=== PATIENT | male | born 1935 | race Caucasian/White ===

== ENCOUNTER 2018-01-05 16:02 | Emergency (ER) | payer MEDICARE, OTHER ==
[~2018-01-05] VITALS: Ht 177.8 cm; Wt 85.3 kg
[~2018-01-05 16:02] MED LIST: FOLI1TAB16 PO; PANT-47 PO; PRAV40TA3 PO; ROPI4TAB3 PO; TERA10CA4 PO
[2018-01-05 16:08] VITALS: BP 156/103
[2018-01-05] MEDS ORDERED: normal saline 1000ML IV soln IV ONE (16:20)
[2018-01-05] MEDS ORDERED: pantoprazole IV 80 MG in normal saline 100ml IV soln 100 ML IV ONE (16:20)
[2018-01-05 16:38] LABS: CLARITY,URINE CLEAR (Clear); COLOR,URINE YELLOW (Yellow); GLUCOSE, URINE NEGATIVE (Neg); KETONES,URINE NEGATIVE (Neg); LEUKOCYTE ESTERASE ,URINE NEGATIVE (Neg); NITRITES, URINE NEGATIVE (Neg); OCCULT BLOOD,URINE NEGATIVE (Neg); PROTEIN,URINE NEGATIVE (Neg); UROBILINOGEN,URINE 0.2 E.U/dL (0.2-1.0)
[2018-01-05 16:39] LABS: UA COLLECTION TYPE CLN CATCH MIDSTREAM
[2018-01-05 16:53] LABS: BASOPHILS % (AUTO) 0.4 % (0-1); EOSINOPHILS # (AUTO) 0.2 X10'3 (0-0.9); HEMATOCRIT 29.3 % (42.0-52.0); HEMOGLOBIN 9.6 g/dl (14.0-17.9); LYMPHOCYTES # (AUTO) 0.9 X10'3 (1.1-4.8); LYMPHOCYTES % (AUTO) 11.9 % (21-51); MEAN CORPUSCULAR HEMOGLOBIN 23.4 PG (27.0-31.0); MEAN CORPUSCULAR HGB CONC 32.8 % (33.0-36.5); MEAN CORPUSCULAR VOLUME 71.3 FL (78-98); MEAN PLATELET VOLUME 7.4 FL (7.4-10.4); MONOCYTES # (AUTO) 0.6 X10'3 (0-0.9); MONOCYTES % (AUTO) 8.5 % (2-12); NEUTROPHILS # (AUTO) 5.9 X10'3 (1.8-7.7); NEUTROPHILS % (AUTO) 77.2 % (42-75); PLATELET COUNT 290 X10'3 (140-440); RED BLOOD COUNT 4.12 X10'6 (4.70-6.10); RED CELL DISTRIBUTION WIDTH 19.8 % (11.5-14.5); WHITE BLOOD COUNT 7.6 X10'3 (4.5-11.0)
[2018-01-05 17:03] LABS: PARTIAL THROMBOPLASTIN TIME 28 SECONDS (22-32); PROTHROMBIN TIME 10.5 SECONDS (9.0-12.0)
[2018-01-05 17:09] LABS: ALANINE AMINOTRANSFERASE 26 U/L (12-78); ALBUMIN 3.6 G/DL (3.4-5.0); ALBUMIN/GLOBULIN RATIO 0.9 (1.1-1.5); ALKALINE PHOSPHATASE 77 IU/L (46-116); ANION GAP 10 (8-16); ASPARTATE AMINO TRANSFERASE 18 U/L (10-37); BILIRUBIN,TOTAL 0.6 MG/DL (0.1-1.0); BLOOD UREA NITROGEN 35 MG/DL (7-18); BUN/CREATININE RATIO 25.9 (5.4-32.0); CHLORIDE 97 MMOL/L (99-107); CREATININE 1.35 MG/DL (0.60-1.10); GLUCOSE 102 MG/DL (70-104); POTASSIUM 3.9 MMOL/L (3.5-5.1); SODIUM 134 MMOL/L (135-145); TOTAL CARBON DIOXIDE 27.4 MMOL/L (24-32); TOTAL PROTEIN 7.4 G/DL (6.4-8.2); eGFR 51 ML/MIN
[2018-01-05] MEDS ORDERED: POLY119P2 PO (17:39)
[2018-01-07 10:45] LABS: OCCULT BLOOD STOOL POSITIVE (Neg)
== END 2018-01-05 18:02 | disposition home or self-care (01) ==
LOC: ER 16:03
DX: K62.5 Hemorrhage of anus and rectum (principal); K59.00 Constipation, unspecified; K80.20 Calculus of gallbladder without cholecystitis without obstruction; K57.30 Diverticulosis of large intestine without perforation or abscess without bleeding; I10 Essential (primary) hypertension; G89.29 Other chronic pain; Z79.899 Other long term (current) drug therapy
CPT/HCPCS: 36415; 74176; 80053; 81003; 82272; 85025; 85610; 85730; 86885; 86900; 86901; 93005; 96374; 99285; C9113; J7030

== ENCOUNTER 2018-02-09 10:46 | Inpatient (IN) | payer MEDICARE, OTHER ==
[2018-02-09] VITALS (21 sets, daily range): BP systolic 142–184; BP diastolic 65–103
[~2018-02-09] VITALS: Ht 177.8 cm; Wt 97.5 kg
[~2018-02-09 10:46] MED LIST changes: +POLY119P2 PO
[2018-02-09 11:25] LABS: BASOPHILS % (AUTO) 0.2 % (0-1); EOSINOPHILS # (AUTO) 0.3 X10'3 (0-0.9); EOSINOPHILS % (AUTO) 2.3 % (0-6); LYMPHOCYTES # (AUTO) 0.6 X10'3 (1.1-4.8); MEAN CORPUSCULAR HEMOGLOBIN 22.3 PG (27.0-31.0); MEAN CORPUSCULAR HGB CONC 31.9 % (33.0-36.5); MEAN CORPUSCULAR VOLUME 69.8 FL (78-98); MEAN PLATELET VOLUME 6.1 FL (7.4-10.4); MONOCYTES # (AUTO) 0.5 X10'3 (0-0.9); MONOCYTES % (AUTO) 4.3 % (2-12); NEUTROPHILS # (AUTO) 9.7 X10'3 (1.8-7.7); NEUTROPHILS % (AUTO) 88.2 % (42-75); PLATELET COUNT 540 X10'3 (140-440); RED BLOOD COUNT 2.74 X10'6 (4.70-6.10); RED CELL DISTRIBUTION WIDTH 19.3 % (11.5-14.5)
[2018-02-09 11:32] LABS: HEMATOCRIT 19.1 % (42.0-52.0); HEMOGLOBIN 6.1 g/dl (14.0-17.9)
[2018-02-09 11:38] LABS: ANISOCYTOSIS 2+; INR 1.1 INR; LARGE PLATELETS FEW; MICROCYTOSIS 2+; PARTIAL THROMBOPLASTIN TIME 29 SECONDS (22-32); PLATELET ESTIMATE INCREASED; POIKILOCYTOSIS FEW; POLYCHROMASIA 1+
[2018-02-09 11:39] LABS: TARGET CELLS FEW
[2018-02-09 11:58] LABS: ALANINE AMINOTRANSFERASE 26 U/L (12-78); ALBUMIN/GLOBULIN RATIO 0.8 (1.1-1.5); ALKALINE PHOSPHATASE 79 IU/L (46-116); ANION GAP 11 (8-16); ASPARTATE AMINO TRANSFERASE 32 U/L (10-37); BILIRUBIN,TOTAL 0.8 MG/DL (0.1-1.0); BLOOD UREA NITROGEN 15 MG/DL (7-18); BUN/CREATININE RATIO 13.3 (5.4-32.0); CALCIUM 8.5 MG/DL (8.5-10.1); CHLORIDE 88 MMOL/L (99-107); CREATININE 1.13 MG/DL (0.60-1.10); GLUCOSE 106 MG/DL (70-104); LIPASE 129 U/L (73-393); POTASSIUM 4.1 MMOL/L (3.5-5.1); SODIUM 122 MMOL/L (135-145); TOTAL CARBON DIOXIDE 23.4 MMOL/L (24-32); TOTAL PROTEIN 6.7 G/DL (6.4-8.2); eGFR 62 ML/MIN
[2018-02-09 12:17] LABS: OCCULT BLOOD STOOL NEGATIVE (Neg)
[2018-02-09] MEDS ORDERED: furosemide 10 MG/1 ML 10ml inj IV STA (12:28)
[2018-02-09 12:43] LABS: % IRON SATURATION 5 % (11-46); IRON 16 UG/DL (53-167); TOTAL IRON BINDING CAPACITY 343 UG/DL (259-388)
[2018-02-09] MEDS ORDERED: mag hydrox/Alum hydrox/simeth 30ml oral suspension PO PRN (12:45)
[2018-02-09] MEDS ORDERED: acetaminophen 325mg tablet PO PRN (12:45)
[2018-02-09] MEDS ORDERED: bisacodyl 10mg suppository rectal RC PRN (12:45)
[2018-02-09] MEDS ORDERED: ondansetron/PF 4mg/2ml inj IV PRN (12:45)
[2018-02-09] MEDS ORDERED: magnesium 4gm in 100ml NS 100 ML IV PRN (12:45)
[2018-02-09] MEDS ORDERED: HYDROcodone/acetaminophen 5mg/325mg tablet PO PRN (12:45)
[2018-02-09] MEDS ORDERED: magnesium 2GM in 50ml NS 50 ML IV PRN (12:45)
[2018-02-09] MEDS ORDERED: metoclopramide 5 mg/ml inj IV PRN (12:45)
[2018-02-09] MEDS ORDERED: magnesium hydroxide 30ml (MOM) UD suspension PO PRN (12:45)
[2018-02-09] MEDS ORDERED: potassium Cl 20 mEq SR tablet PO PRN ×2 (12:45)
[2018-02-09] MEDS ORDERED: potassium Cl 40MEQ/NS 500ml 500 ML IV PRN ×2 (12:45)
[2018-02-09] MEDS ORDERED: magnesium Cl slow-release 64mg tablet PO PRN (12:45)
[2018-02-09 12:48] LABS: RED BLOOD COUNT 2.73 X10'6 (4.70-6.10); RETICULOCYTE % (AUTO) 3.3 % (0.5-1.5)
[2018-02-09 12:49] LABS: CLARITY,URINE CLEAR (Clear); COLOR,URINE YELLOW (Yellow); GLUCOSE, URINE NEGATIVE (Neg); KETONES,URINE 15 mg/dl (Neg); LEUKOCYTE ESTERASE ,URINE NEGATIVE (Neg); NITRITES, URINE NEGATIVE (Neg); OCCULT BLOOD,URINE TRACE-INTACT (Neg); PROTEIN,URINE TRACE mg/dl (Neg)
[2018-02-09 12:52] LABS: UA COLLECTION TYPE CLN CATCH MIDSTREAM
[2018-02-09 12:54] LABS: BACTERIA,URINE NONE SEEN /HPF (Neg); MUCUS STRANDS NONE SEEN /LPF (Neg); RENAL CELLS, URINE FEW /HPF; SQUAMOUS EPITHELIAL CELL,UR FEW /LPF (FEW)
[2018-02-09 13:00] LABS: FERRITIN 61 NG/ML (26-388); MAGNESIUM 1.7 MG/DL (1.5-2.4)
[2018-02-09] MEDS ORDERED: ipratropium/albuterol 3ml nebule NEB PRN (13:05)
[2018-02-09] MEDS: iron sucrose complex injection 300 MG in normal saline 250ml IV soln 235 ML IV SCH (15:46)
[2018-02-09] MEDS: HYDROcodone/acetaminophen 10/325mg tab PO PRN (16:51)
[2018-02-09 17:24] LABS: HEMOGLOBIN 7.2 g/dl (14.0-17.9); MEAN CORPUSCULAR HGB CONC 32.6 % (33.0-36.5); MEAN CORPUSCULAR VOLUME 70.4 FL (78-98); MEAN PLATELET VOLUME 6.7 FL (7.4-10.4); PLATELET COUNT 559 X10'3 (140-440); RED BLOOD COUNT 3.13 X10'6 (4.70-6.10)
[2018-02-09] MEDS ORDERED: magnesium 1 gm/2ml inj. 1 GM in normal saline 50ml IV soln 48 ML IV ONE (17:35)
[2018-02-09] MEDS ORDERED: ROPINIROLE HCL 4 MG PO SCH (20:00)
[2018-02-09] MEDS: potassium Cl 20 mEq SR tablet PO SCH (22:18)
[2018-02-09] MEDS: terazosin 5mg capsule PO SCH (22:19)
[2018-02-09] MEDS: pravastatin 40mg tablet PO SCH (22:19)
[2018-02-09] MEDS: ROPINIRole 1mg tablet PO SCH (22:19)
[2018-02-09] MEDS: pantoprazole 40 MG vial IV SCH (23:06)
[2018-02-09] MEDS: furosemide 40mg/4ml inj IV SCH (23:06)
[2018-02-10 00:35] LABS: HEMATOCRIT 22.8 % (42.0-52.0); HEMOGLOBIN 7.4 g/dl (14.0-17.9); MEAN CORPUSCULAR HEMOGLOBIN 23.5 PG (27.0-31.0); MEAN CORPUSCULAR HGB CONC 32.5 % (33.0-36.5); MEAN CORPUSCULAR VOLUME 72.4 FL (78-98); MEAN PLATELET VOLUME 6.6 FL (7.4-10.4); PLATELET COUNT 529 X10'3 (140-440); RED BLOOD COUNT 3.15 X10'6 (4.70-6.10); RED CELL DISTRIBUTION WIDTH 19.9 % (11.5-14.5); WHITE BLOOD COUNT 12.4 X10'3 (4.5-11.0)
[2018-02-10 02:00] VITALS: BP 152/76
[2018-02-10 06:00] VITALS: BP 152/87
[2018-02-10 06:06] LABS: HEMATOCRIT 23.6 % (42.0-52.0); HEMOGLOBIN 7.7 g/dl (14.0-17.9); MEAN CORPUSCULAR HEMOGLOBIN 23.4 PG (27.0-31.0); MEAN CORPUSCULAR HGB CONC 32.5 % (33.0-36.5); MEAN CORPUSCULAR VOLUME 71.9 FL (78-98); MEAN PLATELET VOLUME 6.8 FL (7.4-10.4); PLATELET COUNT 559 X10'3 (140-440); RED BLOOD COUNT 3.28 X10'6 (4.70-6.10); RED CELL DISTRIBUTION WIDTH 19.4 % (11.5-14.5)
[2018-02-10 06:09] LABS: BASOPHILS % (AUTO) 0.1 % (0-1); EOSINOPHILS # (AUTO) 0.4 X10'3 (0-0.9); EOSINOPHILS % (AUTO) 3.8 % (0-6); HEMATOCRIT 23.5 % (42.0-52.0); HEMOGLOBIN 7.6 g/dl (14.0-17.9); LYMPHOCYTES # (AUTO) 0.7 X10'3 (1.1-4.8); MEAN CORPUSCULAR HEMOGLOBIN 23.3 PG (27.0-31.0); MEAN CORPUSCULAR HGB CONC 32.5 % (33.0-36.5); MEAN CORPUSCULAR VOLUME 71.6 FL (78-98); MEAN PLATELET VOLUME 6.9 FL (7.4-10.4); MONOCYTES # (AUTO) 0.8 X10'3 (0-0.9); MONOCYTES % (AUTO) 6.8 % (2-12); NEUTROPHILS # (AUTO) 9.6 X10'3 (1.8-7.7); NEUTROPHILS % (AUTO) 83.3 % (42-75); PLATELET COUNT 569 X10'3 (140-440); RED BLOOD COUNT 3.28 X10'6 (4.70-6.10); RED CELL DISTRIBUTION WIDTH 19.6 % (11.5-14.5); WHITE BLOOD COUNT 11.5 X10'3 (4.5-11.0)
[2018-02-10 06:22] LABS: ANION GAP 7 (8-16); BLOOD UREA NITROGEN 14 MG/DL (7-18); BUN/CREATININE RATIO 11.2 (5.4-32.0); CHLORIDE 90 MMOL/L (99-107); CREATININE 1.25 MG/DL (0.60-1.10); GLUCOSE 87 MG/DL (70-104); POTASSIUM 3.4 MMOL/L (3.5-5.1); SODIUM 127 MMOL/L (135-145); TOTAL CARBON DIOXIDE 30.3 MMOL/L (24-32)
[2018-02-10 06:23] LABS: CALCIUM 8.7 MG/DL (8.5-10.1); MAGNESIUM 1.9 MG/DL (1.5-2.4); PHOSPHORUS 3.5 MG/DL (2.3-4.5); eGFR 56 ML/MIN
[2018-02-10] MEDS ORDERED: non-formulary drug (Terazosin HCl 1 CAP) PO SCH (08:00)
[2018-02-10] MEDS: K and/or MAG REPLACEMENT MC SCH (08:00)
[2018-02-10] MEDS: folic acid 1mg tablet PO SCH (08:15)
[2018-02-10] MEDS: potassium Cl 20 mEq SR tablet PO SCH (08:16)
[2018-02-10] MEDS: ROPINIRole 1mg tablet PO SCH ×2 (08:16→20:07)
[2018-02-10] MEDS ORDERED: magnesium 2GM in 50ml NS 50 ML IV ONE (08:35)
[2018-02-10] MEDS ORDERED: potassium Cl 20 mEq SR tablet PO ONE (08:35)
[2018-02-10] MEDS ORDERED: potassium Cl oral solution 20 MEQ/15 ML PO PRN ×2 (08:52→08:53)
[2018-02-10] MEDS: furosemide 40mg/4ml inj IV SCH ×2 (08:53→20:07)
[2018-02-10] MEDS: pantoprazole 40 MG vial IV SCH (08:53)
[2018-02-10] MEDS: iron sucrose complex injection 300 MG in normal saline 250ml IV soln 235 ML IV SCH (08:54)
[2018-02-10] MEDS ORDERED: potassium Cl oral solution 20 MEQ/15 ML PO ONE (08:55)
[2018-02-10 11:00] VITALS: BP 123/69
[2018-02-10 11:21] LABS: HEMATOCRIT 25.5 % (42.0-52.0); HEMOGLOBIN 8.2 g/dl (14.0-17.9); MEAN CORPUSCULAR HEMOGLOBIN 22.9 PG (27.0-31.0); MEAN CORPUSCULAR VOLUME 71.5 FL (78-98); MEAN PLATELET VOLUME 6.8 FL (7.4-10.4); PLATELET COUNT 602 X10'3 (140-440); RED BLOOD COUNT 3.57 X10'6 (4.70-6.10); RED CELL DISTRIBUTION WIDTH 19.3 % (11.5-14.5)
[2018-02-10 15:00] VITALS: BP 134/73
[2018-02-10 18:00] VITALS: BP 132/77
[2018-02-10] MEDS: pravastatin 40mg tablet PO SCH (20:07)
[2018-02-10] MEDS: pantoprazole 40mg Tablet.DR PO SCH (20:07)
[2018-02-10] MEDS: potassium Cl oral solution 20 MEQ/15 ML PO SCH (20:07)
[2018-02-10] MEDS: terazosin 5mg capsule PO SCH (20:07)
[2018-02-10 22:00] VITALS: BP 150/72
[2018-02-11] MEDS: HYDROcodone/acetaminophen 10/325mg tab PO PRN (00:59)
[2018-02-11 02:00] VITALS: BP 126/92
[2018-02-11 05:35] LABS: BASOPHILS # (AUTO) 0.1 X10'3 (0-0.2); BASOPHILS % (AUTO) 1.2 % (0-1); EOSINOPHILS # (AUTO) 0.8 X10'3 (0-0.9); HEMATOCRIT 28.1 % (42.0-52.0); HEMOGLOBIN 9.1 g/dl (14.0-17.9); LYMPHOCYTES # (AUTO) 0.9 X10'3 (1.1-4.8); LYMPHOCYTES % (AUTO) 8.3 % (21-51); MEAN CORPUSCULAR HEMOGLOBIN 23.1 PG (27.0-31.0); MEAN CORPUSCULAR HGB CONC 32.3 % (33.0-36.5); MEAN CORPUSCULAR VOLUME 71.7 FL (78-98); MEAN PLATELET VOLUME 6.8 FL (7.4-10.4); MONOCYTES % (AUTO) 8.5 % (2-12); NEUTROPHILS # (AUTO) 8.5 X10'3 (1.8-7.7); PLATELET COUNT 660 X10'3 (140-440); RED BLOOD COUNT 3.93 X10'6 (4.70-6.10); WHITE BLOOD COUNT 11.3 X10'3 (4.5-11.0)
[2018-02-11 06:00] VITALS: BP 137/92
[2018-02-11 06:17] LABS: ALBUMIN 3.4 G/DL (3.4-5.0); ANION GAP 9 (8-16); BLOOD UREA NITROGEN 11 MG/DL (7-18); BUN/CREATININE RATIO 8.3 (5.4-32.0); CALCIUM 9.5 MG/DL (8.5-10.1); CHLORIDE 88 MMOL/L (99-107); CREATININE 1.32 MG/DL (0.60-1.10); GLUCOSE 91 MG/DL (70-104); MAGNESIUM 2.1 MG/DL (1.5-2.4); PHOSPHORUS 3.1 MG/DL (2.3-4.5); POTASSIUM 3.8 MMOL/L (3.5-5.1); SODIUM 127 MMOL/L (135-145); TOTAL CARBON DIOXIDE 30.5 MMOL/L (24-32); eGFR 52 ML/MIN
[2018-02-11] MEDS: normal saline 1000ml 1,000 ML IV ONE ×2 (07:40→08:53)
[2018-02-11] MEDS: K and/or MAG REPLACEMENT MC SCH (08:00)
[2018-02-11] MEDS: pantoprazole 40mg Tablet.DR PO SCH ×2 (08:41→21:04)
[2018-02-11] MEDS: folic acid 1mg tablet PO SCH (08:41)
[2018-02-11] MEDS: amLODIPine 2.5mg tablet PO SCH (08:42)
[2018-02-11] MEDS: ROPINIRole 1mg tablet PO SCH ×2 (08:42→21:06)
[2018-02-11] MEDS: potassium Cl oral solution 20 MEQ/15 ML PO SCH ×2 (08:43→21:04)
[2018-02-11] MEDS: iron sucrose complex injection 300 MG in normal saline 250ml IV soln 235 ML IV SCH (09:35)
[2018-02-11] MEDS ORDERED: normal saline 1000ml 1,000 ML IV SCH (09:45)
[2018-02-11 11:41] VITALS: BP 141/87
[2018-02-11 15:00] VITALS: BP 153/99
[2018-02-11] MEDS: terazosin 5mg capsule PO SCH (21:05)
[2018-02-11] MEDS: pravastatin 40mg tablet PO SCH (21:05)
[2018-02-12 05:30] VITALS: BP 147/88
[2018-02-12 05:52] LABS: BASOPHILS # (AUTO) 0.1 X10'3 (0-0.2); BASOPHILS % (AUTO) 0.6 % (0-1); EOSINOPHILS # (AUTO) 0.9 X10'3 (0-0.9); EOSINOPHILS % (AUTO) 7.2 % (0-6); HEMATOCRIT 26.2 % (42.0-52.0); HEMOGLOBIN 8.4 g/dl (14.0-17.9); LYMPHOCYTES % (AUTO) 8.1 % (21-51); MEAN CORPUSCULAR HEMOGLOBIN 23.2 PG (27.0-31.0); MEAN CORPUSCULAR HGB CONC 31.9 % (33.0-36.5); MEAN CORPUSCULAR VOLUME 72.8 FL (78-98); MEAN PLATELET VOLUME 6.6 FL (7.4-10.4); MONOCYTES % (AUTO) 8.6 % (2-12); NEUTROPHILS # (AUTO) 9.1 X10'3 (1.8-7.7); NEUTROPHILS % (AUTO) 75.5 % (42-75); PLATELET COUNT 704 X10'3 (140-440); RED CELL DISTRIBUTION WIDTH 20.1 % (11.5-14.5); WHITE BLOOD COUNT 12.1 X10'3 (4.5-11.0)
[2018-02-12 06:20] LABS: ANION GAP 7 (8-16); BLOOD UREA NITROGEN 10 MG/DL (7-18); BUN/CREATININE RATIO 8.5 (5.4-32.0); CALCIUM 8.9 MG/DL (8.5-10.1); CHLORIDE 90 MMOL/L (99-107); CREATININE 1.18 MG/DL (0.60-1.10); GLUCOSE 90 MG/DL (70-104); MAGNESIUM 1.9 MG/DL (1.5-2.4); PHOSPHORUS 2.9 MG/DL (2.3-4.5); POTASSIUM 4.4 MMOL/L (3.5-5.1); SODIUM 124 MMOL/L (135-145); TOTAL CARBON DIOXIDE 26.7 MMOL/L (24-32); eGFR 59 ML/MIN
[2018-02-12 06:53] LABS: ANISOCYTOSIS 2+; PLATELET ESTIMATE INCREASED
[2018-02-12 06:54] LABS: HYPOCHROMASIA 1+; LARGE PLATELETS FEW; POLYCHROMASIA 1+
[2018-02-12] MEDS: K and/or MAG REPLACEMENT MC SCH (08:00)
[2018-02-12] MEDS: folic acid 1mg tablet PO SCH (09:04)
[2018-02-12] MEDS: amLODIPine 2.5mg tablet PO SCH (09:04)
[2018-02-12] MEDS: pantoprazole 40mg Tablet.DR PO SCH ×2 (09:04→20:18)
[2018-02-12] MEDS: potassium Cl oral solution 20 MEQ/15 ML PO SCH ×2 (09:05→20:18)
[2018-02-12] MEDS: ROPINIRole 1mg tablet PO SCH ×2 (09:05→20:18)
[2018-02-12 09:16] LABS: SODIUM,URINE RANDOM 21 MEQ/L
[2018-02-12 09:45] LABS: OSMOLALITY UA 132 MOSM/K (50-1400)
[2018-02-12 11:00] VITALS: BP 131/73
[2018-02-12 15:00] VITALS: BP 149/92
[2018-02-12 16:06] LABS: OCCULT BLOOD STOOL NEGATIVE (Neg)
[2018-02-12] MEDS: HYDROcodone/acetaminophen 10/325mg tab PO PRN (16:08)
[2018-02-12 19:00] VITALS: BP 162/91
[2018-02-12] MEDS: terazosin 5mg capsule PO SCH (20:18)
[2018-02-12] MEDS: pravastatin 40mg tablet PO SCH (20:18)
[2018-02-12 23:00] VITALS: BP 142/65
[2018-02-13] MEDS: HYDROcodone/acetaminophen 10/325mg tab PO PRN ×2 (00:57→08:27)
[2018-02-13 03:00] VITALS: BP 167/64
[2018-02-13 05:30] VITALS: BP 136/88
[2018-02-13 05:47] LABS: BASOPHILS % (AUTO) 0.1 % (0-1); EOSINOPHILS # (AUTO) 0.7 X10'3 (0-0.9); EOSINOPHILS % (AUTO) 7.4 % (0-6); HEMATOCRIT 26.9 % (42.0-52.0); HEMOGLOBIN 8.6 g/dl (14.0-17.9); LYMPHOCYTES # (AUTO) 0.9 X10'3 (1.1-4.8); LYMPHOCYTES % (AUTO) 9.4 % (21-51); MEAN CORPUSCULAR HEMOGLOBIN 23.4 PG (27.0-31.0); MEAN CORPUSCULAR HGB CONC 32.1 % (33.0-36.5); MEAN PLATELET VOLUME 6.4 FL (7.4-10.4); MONOCYTES # (AUTO) 0.9 X10'3 (0-0.9); MONOCYTES % (AUTO) 9.4 % (2-12); NEUTROPHILS # (AUTO) 7.2 X10'3 (1.8-7.7); NEUTROPHILS % (AUTO) 73.7 % (42-75); PLATELET COUNT 740 X10'3 (140-440); RED BLOOD COUNT 3.69 X10'6 (4.70-6.10); RED CELL DISTRIBUTION WIDTH 20.3 % (11.5-14.5); WHITE BLOOD COUNT 9.7 X10'3 (4.5-11.0)
[2018-02-13 05:56] LABS: ALBUMIN 3.1 G/DL (3.4-5.0); ANION GAP 8 (8-16); BLOOD UREA NITROGEN 12 MG/DL (7-18); BUN/CREATININE RATIO 10.4 (5.4-32.0); CHLORIDE 93 MMOL/L (99-107); CREATININE 1.15 MG/DL (0.60-1.10); GLUCOSE 90 MG/DL (70-104); PHOSPHORUS 3.4 MG/DL (2.3-4.5); POTASSIUM 4.3 MMOL/L (3.5-5.1); SODIUM 126 MMOL/L (135-145); TOTAL CARBON DIOXIDE 25.3 MMOL/L (24-32); eGFR 61 ML/MIN
[2018-02-13] MEDS ORDERED: amLODIPine 2.5mg tablet PO SCH (08:00)
[2018-02-13] MEDS: K and/or MAG REPLACEMENT MC SCH (08:00)
[2018-02-13] MEDS ORDERED: potassium Cl 20 mEq SR tablet PO SCH (08:00)
[2018-02-13] MEDS: ROPINIRole 1mg tablet PO SCH (08:25)
[2018-02-13] MEDS: folic acid 1mg tablet PO SCH (08:25)
[2018-02-13] MEDS: pantoprazole 40mg Tablet.DR PO SCH (08:25)
== END 2018-02-13 13:05 | disposition home or self-care (01) | DRG 291 ==
LOC: ER 10:47 → ED HOLD 12:44 → PCU 3S 14:40
PROVIDERS: ADMIT Internal Medicine; ATTEND Internal Medicine
PROC: 30233N1 Transfusion of Nonautologous Red Blood Cells into Peripheral Vein, Percutaneous Approach (ICD-10-PCS; principal; 2018-02-09)
DX: I11.0 Hypertensive heart disease with heart failure (principal); J96.00 Acute respiratory failure, unspecified whether with hypoxia or hypercapnia; K92.2 Gastrointestinal hemorrhage, unspecified; D62 Acute posthemorrhagic anemia; E87.1 Hypo-osmolality and hyponatremia; I44.1 Atrioventricular block, second degree; S02.401A Maxillary fracture, unspecified side, initial encounter for closed fracture; I50.31 Acute diastolic (congestive) heart failure; W18.39XA Other fall on same level, initial encounter; D50.9 Iron deficiency anemia, unspecified; E78.5 Hyperlipidemia, unspecified; F03.90 Unspecified dementia, unspecified severity, without behavioral disturbance, psychotic disturbance, mood disturbance, and anxiety; G25.81 Restless legs syndrome; G89.29 Other chronic pain; H91.90 Unspecified hearing loss, unspecified ear; Z96.659 Presence of unspecified artificial knee joint; K21.9 Gastro-esophageal reflux disease without esophagitis; Z96.619 Presence of unspecified artificial shoulder joint; M19.90 Unspecified osteoarthritis, unspecified site; N40.0 Benign prostatic hyperplasia without lower urinary tract symptoms; Z86.73 Personal history of transient ischemic attack (TIA), and cerebral infarction without residual deficits; Z87.11 Personal history of peptic ulcer disease; Y93.89 Activity, other specified; Y92.89 Other specified places as the place of occurrence of the external cause; Y99.8 Other external cause status
CPT/HCPCS: 36415; 70450; 70486; 71045; 80048; 80053; 81001; 82272; 82533; 82728; 83540; 83550; 83605; 83690; 83735; 83880; 83930; 83935; 84100; 84132; 84300; 84484; 85025; 85027; 85045; 85610; 85730; 86885; 86900; 86901; 86920; 87040; 87070; 93005; 93306; 94640; 94760; 97110; 97116; 97162; 97530; A6258; C9113; J1940; J3475; J7030; P9016

== ENCOUNTER 2019-10-02 14:21 | Outpatient (CLI) | payer MEDICARE, OTHER | END 2019-10-02 23:59 | disposition home or self-care (01) | LOC: CARD DIAG 14:21 | PROVIDERS: ATTEND Internal Medicine Cardiovascular Disease | DX: I08.8 Other rheumatic multiple valve diseases (principal); I50.22 Chronic systolic (congestive) heart failure; R01.1 Cardiac murmur, unspecified | CPT/HCPCS: 93306 ==

== ENCOUNTER 2022-08-29 13:22 | Emergency (ER) | payer MEDICARE, OTHER ==
[~2022-08-29] VITALS: Ht 177.8 cm; Wt 91.8 kg
[~2022-08-29 13:22] MED LIST changes: +APIX5TAB3 NG; -FOLI1TAB16 PO; +GABA300C PO; -PANT-47 PO; -POLY119P2 PO; -PRAV40TA3 PO; +QUET25TA36 PO; -TERA10CA4 PO; +TERA5CAP4 PO
[2022-08-29 17:22] VITALS: BP 152/98
[2022-08-29] MEDS ORDERED: HYDR-3965 PO (19:06)
--- NOTE | 2022-08-29 19:24 | NUR ---
agree w/ debubblizer asessment of this pt/.
== END 2022-08-29 19:28 | disposition home or self-care (01) ==
LOC: ER 13:22
DX: S40.011A Contusion of right shoulder, initial encounter (principal); S00.83XA Contusion of other part of head, initial encounter; R55 Syncope and collapse; R42 Dizziness and giddiness; R00.1 Bradycardia, unspecified; W18.39XA Other fall on same level, initial encounter; Y93.89 Activity, other specified; Y92.89 Other specified places as the place of occurrence of the external cause; Y99.8 Other external cause status
CPT/HCPCS: 70450; 72125; 72128; 72131; 73030; 99284; A4615

== ENCOUNTER 2022-09-05 06:32 | Day surgery (SDC) | payer MEDICARE, OTHER ==
[~2022-09-05] VITALS: Ht 177.8 cm; Wt 92.0 kg
[2022-09-05] VITALS (20 sets, daily range): BP systolic 109–187; BP diastolic 70–116
[~2022-09-05 06:32] MED LIST changes: +HYDR-3965 PO
[2022-09-05] MEDS: normal saline 1000ml 1,000 ML IV SCH (07:05)
[2022-09-05] MEDS ORDERED: PRAV40TA3 PO (07:19)
[2022-09-05 07:21] LABS: BASOPHILS # (AUTO) 0.1 X10'3 (0-0.2); BASOPHILS % (AUTO) 0.6 % (0-1); EOSINOPHILS # (AUTO) 0.2 X10'3 (0-0.9); EOSINOPHILS % (AUTO) 2.6 % (0-6); HEMATOCRIT 40.6 % (42.0-52.0); HEMOGLOBIN 13.3 g/dl (14.0-17.9); LYMPHOCYTES # (AUTO) 0.7 X10'3 (1.1-4.8); LYMPHOCYTES % (AUTO) 7.3 % (21-51); MEAN CORPUSCULAR HEMOGLOBIN 28.4 PG (27.0-31.0); MEAN CORPUSCULAR HGB CONC 32.8 g/dL (33.0-36.5); MEAN CORPUSCULAR VOLUME 86.5 FL (78-98); MEAN PLATELET VOLUME 7.3 FL (7.4-10.4); MONOCYTES # (AUTO) 0.8 X10'3 (0-0.9); MONOCYTES % (AUTO) 8.7 % (2-12); NEUTROPHILS # (AUTO) 7.5 X10'3 (1.8-7.7); NEUTROPHILS % (AUTO) 80.8 % (42-75); PLATELET COUNT 270 X10'3 (140-440); RED BLOOD COUNT 4.69 X10'6 (4.70-6.10); RED CELL DISTRIBUTION WIDTH 15.9 % (11.5-14.5); WHITE BLOOD COUNT 9.3 X10'3 (4.5-11.0)
[2022-09-05] MEDS ORDERED: TERA5CAP4 PO (07:21)
[2022-09-05] MEDS ORDERED: APIX5TAB3 PO (07:22)
[2022-09-05 07:32] LABS: ALBUMIN 3.5 G/DL (3.4-5.0); ANION GAP 13 (8-16); BLOOD UREA NITROGEN 19 MG/DL (7-18); BUN/CREATININE RATIO 15.8 (5.4-32.0); CALCIUM 9.3 MG/DL (8.5-10.1); CHLORIDE 100 MMOL/L (99-107); GLUCOSE 87 MG/DL (70-104); POTASSIUM 3.9 MMOL/L (3.5-5.1); SODIUM 138 MMOL/L (135-145); TOTAL CARBON DIOXIDE 25.4 MMOL/L (24-32); eGFR 58 ML/MIN
[2022-09-05 07:35] LABS: APTT 33 SECONDS (22-32)
[2022-09-05] MEDS ORDERED: fentaNYL/PF 50MCG/1 ML 2ML syringe ONE (07:35)
[2022-09-05] MEDS ORDERED: LIDOcaine 1% 30ml preserv. free vial ONE (07:35)
[2022-09-05] MEDS ORDERED: midazolam 1 mg/ML 2ml injection ONE ×3 (07:35→09:23)
[2022-09-05] MEDS ORDERED: heparin 1,000 UNITS/NS 500ml 2,000 ML ONE (07:36)
[2022-09-05] MEDS: ceFAZolin inj. 2,000 MG in dextrose 5%-water 100 ML IV ONE (08:08)
[2022-09-05] MEDS ORDERED: heparin 1,000unit/ml 10ml vial 10 ML ONE (08:49)
[2022-09-05] MEDS ORDERED: FLU VACC QS2022-23(6MOS UP)/PF 60 MCG/0.5 ML SYRINGE IMVAC ONE (09:00)
[2022-09-05] MEDS ORDERED: iohexol 350MG/ML 100ml bottle IV ONE (09:00)
[2022-09-05] MEDS ORDERED: proCHLORperazine 10 MG/2 ml inj ONE (09:11)
[2022-09-05] MEDS ORDERED: diphenhydrAMINE 50 mg/ml inj ONE (09:11)
[2022-09-05] MEDS ORDERED: heparin 1,000 UNITS/NS 500ml 500 ML ONE ×2 (09:37→09:44)
[2022-09-05] MEDS ORDERED: HYDROmorphone 1 mg/ml syringe ONE (09:41)
--- NOTE | 2022-09-05 10:16 | NUR ---
Received pt fro [facility], pr drowsy but can follow commands. VSS, shakes head no to pain. Pt needing reminders to keep legs straight. Bilateral groin puncture sites stable, dressing CD&I, no bleeding, bruising or hematoma noted.
--- NOTE | 2022-09-05 10:30 | NUR ---
Pt now resting quietly. VSS, resp even and unlabored, bilateral groin sites stable.
[2022-09-05] MEDS ORDERED: HYDROcodone/acetaminophen 10/325mg tab PO PRN (10:35)
[2022-09-05] MEDS ORDERED: HYDROcodone/acetaminophen 5mg/325mg tablet PO PRN (10:35)
[2022-09-05] MEDS: vancomycin/NS 1 GM in NS 250 ML IV ONE (11:02)
--- NOTE | 2022-09-05 12:10 | NUR ---
RN noticed on monitor pt increased HR, went to pt bedside. Pt with increased HR, increased BP and increased resp rate, with wheezing on exhalation. Vanco infusion stopped, IV line disconnected from pt. Notified charge authorizer to call and notify Dr. Salmeron of pt having possible reaction to Vanco infusion and to page respiratory therapy.
--- NOTE | 2022-09-05 12:16 | NUR ---
Benadryl 50mg given to pt IV, resp therapy at bedside, O2 increased to help support sats. Awaiting Dr. Salmeron to come to bedside.
[2022-09-05] MEDS ORDERED: hydrocortisone sod succ/PF 250mg/2ml inj. IV ONE (12:25)
--- NOTE | 2022-09-05 12:25 | NUR ---
Dr. Salmeron at bedside, pt vitals starting to return to baseline, pt respirations appear to be easier but still with slight exhalation wheezing. Dr. Salmeron gave verbal order for IV Solu-cortef 100mg now.
[2022-09-05] MEDS: diphenhydrAMINE 50 mg/ml inj ONE (12:29)
--- NOTE | 2022-09-05 12:40 | NUR ---
Solu-Cortef 100mg given via IV push. Pt vitals have returned closer to baseline, no wheezing noted. New primary IV fluids started. Pt drowsy due to benadryl but, awakens to name being called but quickly drifted back to sleep.
[2022-09-05] MEDS: hydrocortisone sod succ/PF 100mg/2ml inj. IV ONE (12:41)
[2022-09-05] MEDS ORDERED: gabapentin 300mg capsule PO SCH (13:00)
--- NOTE | 2022-09-05 13:00 | NUR ---
Pt vitals have returned to normal, resp even and unlabored, no wheezing noted. Pt remains drowsy but awakens easily. Bilateral groin puncture sites remain stable, no bleeding, bruising or hematoma noted, drsg CD&I.
--- NOTE | 2022-09-05 13:30 | NUR ---
No changes noted from previous assessment. Pt remains stable.
--- NOTE | 2022-09-05 13:45 | NUR ---
pt eating applesauce and drinking juice.
--- NOTE | 2022-09-05 15:00 | NUR ---
Pt states he needs to "go pee". RN x2 with FWW assisted pt to stand at bedside. Pt unable to void, then stated he needed to " go #2." Pt sat on bedside commode and had bowel movement and voided. RN x2 assisted to clean up pt and return pt to bed. Pt able to take shuffling steps using FWW and RN assist x1.
--- NOTE | 2022-09-05 15:20 | NUR ---
Pt given more applesauce and juice.
[2022-09-05] MEDS ORDERED: ROPINIRole 1mg tablet PO SCH (20:00)
[2022-09-05] MEDS ORDERED: terazosin 5mg capsule PO SCH (20:00)
[2022-09-05] MEDS ORDERED: pravastatin 40mg tablet PO SCH (21:00)
[2022-09-06] MEDS ORDERED: apixaban 5mg tablet PO SCH (08:00)
== END 2022-09-05 16:18 | disposition home or self-care (01) ==
LOC: SSTAY O 06:32
PROVIDERS: ATTEND Internal Medicine Cardiovascular Disease
DX: I49.5 Sick sinus syndrome (principal); I34.81 Nonrheumatic mitral (valve) annulus calcification; I11.0 Hypertensive heart disease with heart failure; I50.32 Chronic diastolic (congestive) heart failure; I48.19 Other persistent atrial fibrillation; I35.1 Nonrheumatic aortic (valve) insufficiency; E78.5 Hyperlipidemia, unspecified; K21.9 Gastro-esophageal reflux disease without esophagitis; M19.90 Unspecified osteoarthritis, unspecified site; G89.29 Other chronic pain; F03.90 Unspecified dementia, unspecified severity, without behavioral disturbance, psychotic disturbance, mood disturbance, and anxiety; Z98.890 Other specified postprocedural states; Z96.652 Presence of left artificial knee joint; Z96.612 Presence of left artificial shoulder joint; Z96.611 Presence of right artificial shoulder joint; Z79.899 Other long term (current) drug therapy; Z79.01 Long term (current) use of anticoagulants; Z82.49 Family history of ischemic heart disease and other diseases of the circulatory system; Z86.73 Personal history of transient ischemic attack (TIA), and cerebral infarction without residual deficits; Z88.1 Allergy status to other antibiotic agents
CPT/HCPCS: 33274; 36415; 80048; 85025; 85610; 85730; 93005; 93308; 99152; 99153; C1760; C1769; C1894; J0690; J1170; J1200; J1644; J1720; J2250; J3010; J3370; J3490; J7030; J7060; Q9967; 76937; 90686; 93306; A4615; A6258; J0780

== ENCOUNTER 2022-09-17 08:59 | Emergency (ER) | payer MEDICARE, OTHER ==
[~2022-09-17] VITALS: Ht 177.8 cm; Wt 90.9 kg
[~2022-09-17 08:59] MED LIST changes: -APIX5TAB3 NG; +APIX5TAB3 PO; -HYDR-3965 PO; +PRAV40TA3 PO; -QUET25TA36 PO
[2022-09-17 09:10] VITALS: BP 172/109
== END 2022-09-17 12:28 | disposition left against medical advice (07) ==
LOC: ER 08:59
DX: M25.552 Pain in left hip (principal); Z53.21 Procedure and treatment not carried out due to patient leaving prior to being seen by health care provider